=== PATIENT | female | born 1955 | race African-American/Black ===

== ENCOUNTER 2019-05-11 11:00 | Outpatient (RCR) | payer OTHER | END 2019-05-31 | disposition home or self-care (01) | LOC: WSC | DX: M17.0 Bilateral primary osteoarthritis of knee (principal) ==

== ENCOUNTER 2021-02-17 20:35 | Emergency (ER) | payer OTHER ==
[~2021-02-17] VITALS: Ht 172.7 cm; Wt 77.3 kg
[2021-02-17 20:45] VITALS: TEMP 98.2
[2021-02-17 21:20] VITALS: BP 141/85; PULSE 72
== END 2021-02-17 21:20 | disposition home or self-care (01) ==
LOC: COL.ER 20:35
DX: M25.562 Pain in left knee (principal); M25.561 Pain in right knee; M79.89 Other specified soft tissue disorders; R20.0 Anesthesia of skin; I10 Essential (primary) hypertension; Z88.6 Allergy status to analgesic agent; Z88.8 Allergy status to other drugs, medicaments and biological substances

== ENCOUNTER 2021-07-08 12:25 | Emergency (ER) | payer MEDICARE, OTHER ==
[~2021-07-08] VITALS: Ht 165.1 cm; Wt 73.6 kg
[2021-07-08 12:36] VITALS: TEMP 98
[2021-07-08] MEDS ORDERED: XARELTO STARTER20 MG PO ×3 (13:50→14:04)
[2021-07-08 14:08] VITALS: BP 132/82; PULSE 70
== END 2021-07-08 14:08 | disposition home or self-care (01) ==
LOC: COL.ER 12:25
DX: M79.89 Other specified soft tissue disorders (principal); R79.1 Abnormal coagulation profile; I10 Essential (primary) hypertension

== ENCOUNTER → 2021-07-10 | Outpatient (CLI) | payer MEDICARE, OTHER ==
[~2021-07-10] MED LIST: XARELTO STARTER20 MG PO
== END ==
LOC: COL.VAS 07:55
DX: M79.89 Other specified soft tissue disorders (principal)

== ENCOUNTER 2021-11-09 09:47 | Outpatient (RCR) | payer MEDICARE, OTHER | END 2021-11-13 | disposition home or self-care (01) | LOC: WSPT | DX: M17.0 Bilateral primary osteoarthritis of knee (principal) ==

== ENCOUNTER → 2021-12-14 | Outpatient (RCR) | payer MEDICARE, OTHER | END | disposition home or self-care (01) | LOC: WSC → WSPT 11-16 09:45 → WSC 11-17 09:45 | DX: M17.0 Bilateral primary osteoarthritis of knee (principal) ==

== ENCOUNTER 2022-01-05 13:30 | Outpatient (RCR) | payer MEDICARE, OTHER | END 2022-01-13 | disposition home or self-care (01) | LOC: WSC | DX: M17.0 Bilateral primary osteoarthritis of knee (principal) ==

== ENCOUNTER 2022-02-09 09:00 | Outpatient (RCR) | payer MEDICARE, OTHER | END 2022-02-13 | disposition home or self-care (01) | LOC: WSC | DX: Z71.89 Other specified counseling (principal) ==

== ENCOUNTER 2022-02-27 09:45 | Outpatient (RCR) | payer MEDICARE, OTHER | END 2022-03-15 | disposition home or self-care (01) | LOC: WSC | DX: M19.90 Unspecified osteoarthritis, unspecified site (principal) ==

== ENCOUNTER → 2022-05-17 | Outpatient (CLI) | payer MEDICARE, OTHER ==
[2022-05-17 11:25] LABS: CREATININE, serum 0.74 mg/dL (0.57-1.11); POTASSIUM 4.5 mmol/L (3.5-4.5)
== END ==
LOC: COL.RAD 10:00 → COL.LAB 10:32
PROVIDERS: Thoracic Surgery (Cardiothoracic Vascular Surgery)
DX: Z01.812 Encounter for preprocedural laboratory examination (principal); I71.2 Thoracic aortic aneurysm, without rupture
CPT/HCPCS: Q9967